=== PATIENT | male | born 1965 | race Caucasian/White ===

== ENCOUNTER 2019-06-30 11:16 | Emergency (ER) | payer MEDICAID ==
[~2019-06-30] VITALS: Ht 175.3 cm; Wt 81.2 kg
[2019-06-30 11:39] VITALS: BP 132/87
--- NOTE | 2019-06-30 11:43 | NUR ---
PT AMBULATED TO ER BED 9
--- NOTE | 2019-06-30 11:45 | NUR ---
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 [id number]. vss. bed is down, locked, bed rail x 1, ermd to see pt. hx--denies rx---none
--- NOTE | 2019-06-30 13:20 | NUR ---
dr hendricks at bedside
[2019-06-30 13:30] VITALS: BP 127/85
--- NOTE | 2019-06-30 13:30 | NUR ---
Patient discharged with v/s stable. Written and verbal after care instructions given and explained. Patient alert, oriented and verbalized understanding of instructions. Ambulatory with steady gait. All questions addressed prior to discharge. ID band removed. Patient advised to follow up with PMD. Rx of claritin, hydrocortisone topical ointment, and permathrin topical ointment given. Patient educated on indication of medication including possible reaction and side effects. Opportunity to ask questions provided and answered.
== END 2019-06-30 13:30 | disposition home or self-care (01) ==
LOC: MED 11:16
DX: R21 Rash and other nonspecific skin eruption (principal)
CPT/HCPCS: 99282